=== PATIENT | female | born 1975 | race Caucasian/White ===

== ENCOUNTER 2020-09-08 20:55 | Day surgery (SDCO) | payer OTHER ==
[~2020-09-08 20:55] MED LIST: AMLODIPINE BESYL5 MG PO; BENAZEPRIL HCL20 MG PO; CYCLOBENZAPRINE5 MG PO; D3-5050000 UNIT PO; DUONEB 2.5-0.5M1 AMP NEB; ESCITALOPRAM OX20 MG PO; IBUPROFEN800 MG PO; K-DUR20 MEQ PO; LASIX40 MG PO; METFORMIN HCL500 M1 PO; METOPROLOL-HCT1 EACH PO; NEURONTIN100 MG PO; PERCOCET 5-3251 EACH PO; PREDNISONE 20MG20 MG PO; TRAMADOL HCL50 MG PO; ULTRAM50 MG PO; VENTOLIN HFA IN18 GM INH; [UNRECOGNIZED DRUG - OTHER] INH
[2020-09-08 22:32] LABS: BASOPHIL 0.3 % (0-2); EOSINOPHIL 1.7 % (0-5); HCT 40.8 % (37.0-47.0); LYMPHOCYTE 13.9 % (15-48); MCH 27.7 pg (25.0-31.0); MCHC 31.9 g/dL (32.0-36.0); MCV 86.8 fL (78.0-100.0); MONOCYTE 4.4 % (0-12); MPV 9.1 fL (6.0-9.5); NEUTROPHIL 79.2 % (41-80); NRBC 0; PLT 256 K/uL (150-400); RDW 14.1 % (11.5-14.0)
[2020-09-08 22:55] LABS: ALBUMIN 3.2 g/dL (3.4-5.0); BILIRUBIN - TOTAL 0.6 mg/dL (0.2-1.0); BUN/CREAT RATIO (CALC) 13.3 RATIO; CREATININE 0.75 mg/dL (0.51-0.95); GLOBULIN (CALCULATION) 3.9 g/dL; POTASSIUM 3.6 mmol/L (3.5-5.1); TOTAL PROTEIN 7.1 g/dL (6.4-8.2)
[2020-09-08 22:58] LABS: PRO-BNP 629 pg/mL (<125)
[2020-09-09 10:43] LABS: CORONAVIRUS 2019 SARS-COV-2 NEGATIVE (NEGATIVE); INFLUENZA A NAA NEGATIVE (NEGATIVE)
[2020-09-09 13:19] LABS: INR 1.09 (0.9-1.2); PROTHROMBIN TIME 13.4 SECONDS (11.4-13.6)
[2020-09-09] MEDS ORDERED: SINGULAIR10 MG PO (15:38)
[2020-09-09] MEDS ORDERED: ULTRAM50 MG PO (15:48)
[2020-09-09] MEDS ORDERED: FENOFIBRATE160 MG PO (15:49)
[2020-09-09] MEDS ORDERED: LOPRESSOR50 MG PO (15:50)
[2020-09-09] MEDS ORDERED: HCTZ25 MG PO (15:51)
[2020-09-09] MEDS ORDERED: CETIRIZINE HCL10 MG PO (15:52)
[2020-09-09] MEDS ORDERED: METFORMIN HCL500 MG PO (15:54)
[2020-09-09] MEDS ORDERED: PRINIVIL20 MG PO (15:55)
[2020-09-09] MEDS ORDERED: VOLTAREN **OUT50 MG PO (15:58)
[2020-09-10] MEDS ORDERED: DUONEB 2.5-0.5M1 AMP NEB (11:37)
[2020-09-10] MEDS ORDERED: PREDNISONE 20MG20 MG PO (11:37)
[2020-09-10] MEDS ORDERED: LASIX40 MG PO (11:37)
[2020-09-10] MEDS ORDERED: K-DUR20 MEQ PO (11:38)
[2020-09-10] MEDS ORDERED: VENTOLIN HFA IN18 GM INH (13:07)
== END 2020-09-10 12:39 | disposition home or self-care (01) ==
LOC: FER 20:55 → FMS 09-09 08:46
PROVIDERS: Emergency Medicine; ADMIT Internal Medicine
DX: J44.1 Chronic obstructive pulmonary disease with (acute) exacerbation (principal); J18.9 Pneumonia, unspecified organism; I16.1 Hypertensive emergency; R60.0 Localized edema; I10 Essential (primary) hypertension; E78.5 Hyperlipidemia, unspecified; Z20.822 Contact with and (suspected) exposure to COVID-19; F17.210 Nicotine dependence, cigarettes, uncomplicated; E66.01 Morbid (severe) obesity due to excess calories; Z79.84 Long term (current) use of oral hypoglycemic drugs; Z79.899 Other long term (current) drug therapy; Z86.718 Personal history of other venous thrombosis and embolism; Z88.8 Allergy status to other drugs, medicaments and biological substances
CPT/HCPCS: 36415; 51798; 71045; 71275; 78580; 80053; 83605; 83880; 84145; 84484; 85025; 85379; 85610; 87040; 93005; 94640; 94664; 94760; A9540; G0378; J1650; J1940; J2920; J2930; J3490; Q9967; U0002